=== PATIENT | male | born 1985 | race Two or more races ===

== ENCOUNTER 2017-05-07 12:29 | Emergency (ER) | payer OTHER ==
[~2017-05-07] VITALS: Ht 172.7 cm; Wt 86.2 kg
[2017-05-07 13:00] VITALS: BP 125/90
--- NOTE | 2017-05-07 13:51 | RAD ---
Right knee with patella, 05/07/2017: History: Knee pain and swelling The knee joint space is well-preserved. No fracture or dislocation is identified. There is only minimal posterior patellar spurring. No joint effusion is seen. There is moderate subcutaneous edema anteriorly. IMPRESSION: No acute bony abnormality is detected.
--- NOTE | 2017-05-07 14:51 | PHYS DOC ---
Past Medical History Past Medical History: No Pertinent History Past Surgical History: Cholecystectomy Alcohol Use: Rarely Drug Use: None Adult General Chief Complaint Chief Complaint: KNEE INJURY HPI HPI Patient is a 31 year old male who presents with a 7 out of 10 throbbing right knee pain that began last week on Sunday after he hit his knee on something. Patient is also complaining of swelling. He states his pain is constant. Denies anything alleviating or making the pain worse. Review of Systems Review of Systems Constitutional: Denies fever or chills [] Musculoskeletal: right knee pain Integument: Denies rash or skin lesions [] Neurologic: Denies headache, focal weakness or sensory changes [] All other systems were reviewed and found to be within normal limits, except as documented in this note. Allergies Allergies Allergies Coded Allergies Type Severity Reaction Last Updated Verified No Known Drug Allergies 11/19/13 No Physical Exam Physical Exam Constitutional: Well developed, well nourished, no acute distress, non-toxic appearance. [] Skin: Warm, dry, no erythema, no rash. [] Back: No tenderness, no CVA tenderness. [] Extremities: Right knee with no obvious deformity, mild to moderate amount of soft tissue swelling noted on the anterior aspect of the knee. Tenderness diffusely on the anterior aspect of the knee. Full range of motion to the right knee, negative Mercy sign and negative Mary Ellen's sign negative anterior- posterior drawer sign to the right knee. +2 right pedal pulse. Cap refill less than 2 seconds the right toes. Neurologic: Alert and oriented X 3, normal motor function, normal sensory function, no focal deficits noted. [] Psychologic: Affect normal, judgement normal, mood normal. [] Current Patient Data Vital Signs Vital Signs Date Time Temp Pulse Resp B/P (MAP) Pulse Ox O2 Delivery O2 Flow Rate FiO2 05/07/17 13:00 97.9 81 16 100 Room Air 97.9 EKG EKG [] Radiology/Procedures Radiology/Procedures []REASON: pain PROCEDURE: KNEE RIGHT 4V Right knee with patella, 05/07/2017: History: Knee pain and swelling The knee joint space is well-preserved. No fracture or dislocation is identified. There is only minimal posterior patellar spurring. No joint effusion is seen. There is moderate subcutaneous edema anteriorly. IMPRESSION: No acute bony abnormality is detected. DICTATED and SIGNED BY: JOURDAN CARABALLO MD DATE: 05/07/17 1346 CC: ALEX MERINO APRN; NON,STAFF; MICHELLE MENDEZ MD ~ Course & Med Decision Making Course & Med Decision Making Pertinent Labs and Imaging studies reviewed. (See chart for details) Patient is in the ED with right knee pain after hitting his knee on something on was the last week. Right knee x-rays interpreted by radiologist were negative for any acute findings but noted for moderate amount of soft tissue swelling on the anterior aspect of the knee. Juan wrap applied to patient's knee. Ice elevation encouraged. Discharged with diclofenac and Medrol Dosepak. Follow-up with Ortho in one week. Dragon Disclaimer Dragon Disclaimer This electronic medical record was generated, in whole or in part, using a voice recognition dictation system. Departure Departure Impression: Primary Impression: Contusion of right knee Disposition: HOME, SELF-CARE Condition: STABLE Referrals: MICHELLE MENDEZ MD (PCP) FLOR JOHNSTON MD Follow up with orthopedic doctor provided in one week Patient Instructions: Contusion Additional Instructions: You were seen with right knee contusion with swelling. Ice elevate the extremity , keep the Juan wrap on as tolerated and needed for pain and swelling. Take the medications prescribed as ordered. Follow-up with your doctor or the provided orthopedic doctor in one week. Scripts Methylprednisolone (MEDROL) 4 Mg Tab.ds.pk 1 PKG PO UD, #1 PKG Prov: ABJELENABrentALEX GARDNER 05/07/17 Diclofenac Sodium (DICLOFENAC SODIUM) 50 Mg Tablet.dr 1 TAB PO BID, #60 TAB 0 Refills Prov: ALEX MERINO APRN 05/07/17 Problem Qualifiers Primary Impression: Contusion of right knee Encounter type: initial encounter Qualified Codes: S80.01XA - Contusion of right knee, initial encounter ALEX MERINO APRN May 07, 2017 14:51
[2017-05-07] MEDS ORDERED: DICL50TA4 PO (14:56)
[2017-05-07] MEDS ORDERED: METH4TAB2 PO (14:56)
== END 2017-05-07 15:01 | disposition home or self-care (01) ==
LOC: ER 12:29
DX: S80.01XA Contusion of right knee, initial encounter (principal); W22.8XXA Striking against or struck by other objects, initial encounter; Y93.89 Activity, other specified; Y92.89 Other specified places as the place of occurrence of the external cause; Y99.8 Other external cause status
CPT/HCPCS: 73564; 99284-25